=== PATIENT | female | born 2000 | race Asian ===

== ENCOUNTER → 2022-11-13 | Outpatient (CLI) | payer OTHER | END | disposition home or self-care (01) | LOC: LAB SHORT 15:12 → LAB 15:12 | DX: R10.9 Unspecified abdominal pain (principal) | CPT/HCPCS: 87086 ==

== ENCOUNTER → 2022-12-17 | Outpatient (CLI) | payer OTHER | LOC: LAB 16:33 → LAB SHORT 16:33 | DX: R10.9 Unspecified abdominal pain (principal) | CPT/HCPCS: 87077; 87086; 87186 ==

== ENCOUNTER 2023-01-11 09:48 | Observation (INO) | payer OTHER ==
[2023-01-11] VITALS (13 sets, daily range): BP systolic 98–119; BP diastolic 52–81
[~2023-01-11] VITALS: Ht 157.5 cm; Wt 64.4 kg
[2023-01-11] MEDS ORDERED: SULFAMETHOXAZO1 EAC1 PO (10:30)
[2023-01-11 10:42] LABS: Source, Urine Clean Catch
[2023-01-11 10:45] LABS: Appearance, Urine Clear (Clear); Bilirubin, Urine Neg (Neg); Blood, Urine 1+ (Neg); Glucose Qualitative, Urine Neg (Neg); Ketones, Urine Neg (Neg); Leukocyte Esterase, Urine Neg (Neg); Nitrite, Urine Neg (Neg); Protein, Urine Neg (Neg); Specific Gravity, Urine 1.015 (1.003-1.022); Urobilinogen, Urine NORM (Normal)
[2023-01-11 10:50] LABS: Color, Urine Pale Yellow (P-Yellow)
[2023-01-11 10:52] LABS: Bacteria Not Seen /hpf; Red Blood Cells, Urine 0-2 /hpf (0-2); Squamous Epithelial Cells Rare /hpf (Few); White Blood Cells, Urine Not Seen /hpf (0-5)
[2023-01-11 10:56] LABS: BASOPHILS ABSOLUTE AUTO 0.04 K/mm3 (0.00-0.23); BASOPHILS PERCENT AUTO 0 % (0-2); EOSINOPHILS ABSOLUTE AUTO 0.04 K/mm3 (0.00-0.68); EOSINOPHILS PERCENT AUTO 0 % (0-6); Hematocrit 44.2 % (33.0-51.0); Hemoglobin 16.2 g/dL (11.5-16.0); IMMATURE GRAN ABSOLUTE AUTO 0.03 K/mm3 (0.00-0.10); IMMATURE GRAN PERCENT AUTO 0 % (0-1); LYMPHOCYTES ABSOLUTE AUTO 2.48 K/mm3 (0.84-5.20); LYMPHOCYTES PERCENT AUTO 24 % (21-46); MONOCYTES ABSOLUTE AUTO 0.51 K/mm3 (0.16-1.47); MONOCYTES PERCENT AUTO 5 % (4-13); Mean Corpuscular HGB 31.2 pg (26.0-34.0); Mean Corpuscular HGB Conc 36.7 g/dL (31.5-36.5); Mean Corpuscular Volume 85 fL (80-100); NEUTROPHILS ABSOLUTE AUTO 7.38 K/mm3 (1.96-9.15); NEUTROPHILS PERCENT AUTO 70 % (41-73); Platelet Count 235 K/mm3 (150-400); RDW Coefficient Variation 11.9 % (11.7-14.2); RDW Standard Deviation 36.5 fL (35.1-46.3); White Blood Cell Count 10.48 K/mm3 (4.00-11.30)
[2023-01-11 11:14] LABS: Albumin, Blood 4.6 g/dL (3.4-5.0); Albumin/Globulin Ratio 1.6 (0.8-1.8); Bilirubin, Total 0.5 mg/dL (0.1-1.0); Bun/Creatinine Ratio 9.4 (12.0-20.0); Calcium, Blood 9.7 mg/dL (8.5-10.1); Creatinine, Blood 0.74 mg/dL (0.40-1.00); Globulin, Blood 2.8 g/dL (2.2-4.0); Potassium, Blood 3.7 mmol/L (3.5-5.5); Total Protein, Blood 7.4 g/dL (6.4-8.2)
[2023-01-11] MEDS ORDERED: OXYC5 PO (19:41)
[2023-01-12 00:16] VITALS: BP 127/65
[2023-01-12 04:25] VITALS: BP 120/65
--- NOTE | 2023-01-12 04:40 | NUR ---
SHIFT SUMMARY POD1 LAP APPY. X3 LAP SITES ARE C/D/I. VSS. PT REPORTS PASSING MINIMAL FLATTUS, NO BM'S. VOIDING WELL. TOLLERATING MINIMAL PO INTAKE W/O EMESIS. PT C/O INTERMITENT NAUSEA. MEDICATED FOR PAIN WITH OXY WITH GOOD RESULTS. NO ACUTE EVENTS T/O THE NIGHT. PLAN TO D/C THIS AM WHEN CLEARED BY SURGICAL SERVICES
[2023-01-12 07:05] VITALS: BP 107/62
--- NOTE | 2023-01-12 10:49 | NUR ---
PT DISCHARGE TO [facility] TODAY WITH DISCHARGE ORDERS. HARD SCRIPT PROVIDED AND WAS GIVEN T PT'S MOTHER TO FILL THE PRESCRIPTION. DISCHARGE INTRUCTIONS DISCLOSED WITH BOTH PT AND THE MOTHER, PAIN MANAGEMENT, MOBILITY AND CONSTIPATION PREVENTION BOTH VERBALIZED UNDERSTANDING. PT ABLE TO GET UP AND MOVE AROUND SLOWLY DUE TO PAIN OTHERWISE INDEPENDENT. PT REPORTED PASSING FLATUS POSTIVE BT ON ALL 4 QUADS DURING ASSESSMENT, INCISION SITE RYAN CDI, ABD TENDER. PT MEDICATED WITH TYLENOL AND OXYCODONE FOR PAIN, PT ALSO HAD NAUSEA MEDS BEFORE BREAKFAST. NO TOEHR ISSUES REPORTED. PT ASSISTED IN [facility] WHEELCHAIR FOR DISCHARGE ALL BELONGINGS SENT WITH THE PT.
== END 2023-01-12 10:25 | disposition home or self-care (01) ==
LOC: ER 09:48 → SURS 09:49
PROVIDERS: Emergency Medicine; ADMIT Surgery
PROC: 0DTJ4ZZ Resection of Appendix, Percutaneous Endoscopic Approach (ICD-10-PCS; principal; 2023-01-11 15:45)
DX: K35.80 Unspecified acute appendicitis (principal)
CPT/HCPCS: 74177; 80053; 81001; 81025; 85025; 88304; 96365; 96374-59; 96375; 96375-59; 96376; 96376-59; 99285-25; A9270; G0378; J0295; J1100; J1885; J2250; J2371; J2405; J2704; J3010; J7030; J7120; Q9967